=== PATIENT | male | born 1975 | race Caucasian/White ===

== ENCOUNTER 2016-11-22 17:27 | Emergency (ER) | payer OTHER ==
--- NOTE | ~2016-11-22 | CT2 ---
[facility] A Service of [facility] RADIOLOGY TEXT RESULTS PATIENT: HI DUONG LOCATION: [facility] : [birth year] UNIT #: [id number] AGE: [address]: Anthony Urrutia MD SEX: M ORDER DR: [id number] [place], [place] [address] [id number] MR#: [id number] Acc #: [id number] NAME: HI DUONG : 1975 SEX: M STUDY DATE/TIME: 11/22/2016 21:10 UNIT: [facility] ROOM: STUDY DESCRIPTION: CT Abd and Pelv W Cont Attending Physician: Anthony Urrutia M.D. Ordering Physician: Anthony Urrutia M.D. Primary Care Physician: Primary Care Physician No MEDICAL IMAGING REPORT This report is preliminary unless electronic signature is present EXAM CT abdomen and pelvis with contrast INDICATIONS Generalized abdominal and left inguinal region pain for the past 2 weeks. PROCEDURE Contrast-enhanced CT of the abdomen and pelvis. This CT exam was performed with one or more of the following radiation dose reduction techniques: Automatic exposure control, adjustment of mA and/or kV according to patient size, and iterative reconstruction. COMPARISON None. FINDINGS ABDOMEN WITH CONTRAST: Included lung bases are clear. The liver, spleen, kidneys, adrenal glands, pancreas and gallbladder are unremarkable. Moderate colonic stool. Appendix is normal. PELVIS WITH CONTRAST: No abnormality in the inguinal regions. No pelvic mass or fluid. No aggressive appearing bone lesion. IMPRESSION No acute findings in the abdomen or pelvis. Dictated by... Justo Aguirre M.D. THIS IS AN ELECTRONICALLY VERIFIED REPORT Justo Aguirre M.D. at 11/23/2016 3:08 PM [facility] A Service of [facility] RADIOLOGY TEXT RESULTS PATIENT: HI DUONG LOCATION: [facility] : 79 UNIT #: [id number] AGE: [address]: Anthony Urrutia MD SEX: M ORDER DR: NIRMAL/andres TD: 11/22/2016 22:46 JOB #: [id number] MEDICAL IMAGING REPORT Page 1 of 1 COPY
[2016-11-22 18:15] LABS: BASOPHIL# 0.1 X10e3 (0-0.3); BASOPHIL% 0.6 % (0-2.5); EOSINOPHIL# 0.1 X10e3 (0-0.7); EOSINOPHIL% 0.5 % (0.0-7.0); HEMATOCRIT 45.4 % (38.0-50.0); HEMOGLOBIN 14.7 gm/dL (13.0-16.0); LYMPHOCYTE# 2.8 X10e3 (1.0-3.5); LYMPHOCYTE% 18.4 % (17.0-45.0); MEAN CELL VOLUME 92.8 FL (83-96); MEAN CORPUSCULAR HGB CONC 32.3 g/dL (30-36); MEAN PLATELET VOLUME 7.9 FL (6.5-11.5); MONOCYTE% 6.2 % (3.0-12.0); NEUTROPHIL# 11.5 X10e3 (1.5-7.1); NEUTROPHIL% 74.3 % (40-75); PLATELET COUNT 333 X10e3 (140-420); RED BLOOD COUNT 4.89 X10e (3.90-5.60); RED CELL DISTRIBUTION WIDTH 13.2 % (11.0-15.5); WHITE BLOOD COUNT 15.5 X10e3 (4.0-10.5)
[2016-11-22 18:16] LABS: DIFF IND YES
[2016-11-22 18:27] LABS: ANISOCYTOSIS SL; PLATELET ESTIMATE NORMAL (NORMAL); POIKILOCYTOSIS SL; RBC NORMAL YES
[2016-11-22 18:35] LABS: ALBUMIN SERUM 4.6 g/dL (3.5-5.0); BILIRUBIN, DIRECT 0.1 mg/dL (0.0-0.2); BILIRUBIN,INDIRECT 0.7 mg/dL (0.0-0.9); BILIRUBIN,TOTAL 0.8 mg/dL (0.2-2.0); CREATININE SERUM 0.7 mg/dL (0.6-1.4); GLOM FILT RATE Estimated 118.9 mL/min (>60); POTASSIUM 4.3 mmol/L (3.5-5.1); PROTEIN TOTAL SERUM 7.6 g/dL (6.0-8.3)
[2016-11-22 20:05] LABS: URINE SOURCE CLEAN CATCH
[2016-11-22 20:09] LABS: URINE APPEARANCE CLEAR; URINE BILIRUBIN NEG (NEG); URINE BLOOD NEG (NEG); URINE COLOR YELLOW; URINE GLUCOSE NEG (NEG); URINE KETONE NEG (NEG); URINE LEUKOCYTE ESTERASE NEG (NEG); URINE NITRATE NEG (NEG); URINE PH 7.5 (5-8); URINE PROTEIN NEG (NEG); URINE SPECIFIC GRAVITY 1.015 (1.003-1.035)
[2016-11-22 20:16] LABS: CULTURE INDICATED? NO
[2016-12-21] MEDS ORDERED: NO MEDICATIONS (15:05)
== END 2016-11-22 22:12 | disposition home or self-care (01) ==
LOC: CED 17:27
DX: R10.32 Left lower quadrant pain (principal); F17.210 Nicotine dependence, cigarettes, uncomplicated
CPT/HCPCS: 36415; 74177; 80048; 80076; 81003; 83690; 85025; 96374; 99284; J1885; Q9967

== ENCOUNTER → 2016-12-28 | Day surgery (SDC) | payer OTHER ==
[~2016-12-28] MED LIST: NO MEDICATIONS
--- NOTE | ~2016-12-28 | OR ---
Unit #: [id number] #: [id number] Patient: HI DUONG [id number] [address] [address] [id number] MR#: [id number] NAME: HI DUONG ROOM: Date of Procedure: 12/28/2016 Admission Date: 12/28/2016 Surgeon: Glynn Ramon M.D. : 1975 Attending Physician: Glynn Ramon M.D. Referring Physician: Glynn Ramon M.D. Primary Care Physician: Primary Care Physician No OPERATIVE REPORT PREOPERATIVE DIAGNOSIS Left inguinal hernia. POSTOPERATIVE DIAGNOSIS Incarcerated indirect left inguinal hernia. PROCEDURE PERFORMED Laparoscopic preperitoneal inguinal hernia repair of left-sided indirect incarcerated inguinal hernia. PUTTY GLAZER Xiang Olson M.D. ANESTHESIA General anesthesia. ESTIMATED BLOOD LOSS Minimal. IV FLUIDS 700 crystalloid. COMPLICATIONS None. INDICATIONS FOR PROCEDURE The patient is a 41-year-old with a left inguinal hernia. DESCRIPTION OF PROCEDURE The patient was taken to the operating theater and placed in a supine position. General anesthesia was induced. The abdomen was prepped and draped. Infraumbilical incision was then made. A small incision was made in the anterior sheath. I created a preperitoneal space with blunt dissection and placed a Veress needle. The abdomen was insufflated to 15 mmHg with CO2. I then placed a 5-mm port. The patient was placed in Trendelenburg. I identified an incarcerated indirect inguinal hernia. This was reduced with external palpation. We then released the pneumoperitoneum. Using the AutoSuture balloon dissection system, I created the preperitoneal space in the left side only. I dissected the lateral space, Unit #: [id number] #: [id number] Patient: HI DUONG identified the cord. The cord was skeletonized and then from the hernia sac. Hernia sac was then transected and ligated with an Endoloop thus reducing the hernia. I identified the Stephen ligament. I placed a large 3DMax mesh into position. This was anteriolized and covered the direct and indirect spaces nicely. This was secured to Stephen ligament as well as lateral anterior musculature with the tacker. Hemostasis was adequate. I released the pneumopreperitoneum with care taken to avoid the peritoneum sliding posterior to the mesh. I then closed the fascia with 0 Vicryl and skin with 4-0 Vicryl. The patient tolerated the procedure well, and was sent to the recovery room in good condition. Dictated by... Maira Yip/kun TD: 12/29/2016 07:37 JOB #: [id number] OPERATIVE REPORT Page 1 of 1 X Glynn Ramon MD X PROCEDURE OPERATIVE NOTE
== END | disposition home or self-care (01) ==
LOC: CSUR 08:24
DX: K40.30 Unilateral inguinal hernia, with obstruction, without gangrene, not specified as recurrent (principal); F17.200 Nicotine dependence, unspecified, uncomplicated; Z82.61 Family history of arthritis; Z83.2 Family history of diseases of the blood and blood-forming organs and certain disorders involving the immune mechanism
CPT/HCPCS: C1781; J0131; J0330; J0690; J1170; J1644; J1885; J2250; J2405; J2501; J2710; J3010